=== PATIENT | male | born 1990 | race African-American/Black ===

== ENCOUNTER 2018-10-19 12:17 | Emergency (ER) | payer OTHER ==
[2018-10-19 12:49] VITALS: BP 136/75
[2018-10-19] MEDS ORDERED: Ondansetron ODT TAB* 4 MG PO ONE (13:22)
[2018-10-19] MEDS ORDERED: hydrOXYzine HCL TAB* 25 MG PO ONE (13:22)
--- NOTE | 2018-10-19 13:31 | UC ---
UC General HPI - HPI Summary HPI Summary: 28-YEAR-OLD MALE comes in with a chief complaint of withdrawal from opiates. 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 He stopped 4 days ago. He's feeling shaky jittery he's had abdominal cramping does not feel well. No fevers no chest pain. He was living in [place] that he moved here to try to get away from the drugs. He is interested in outpatient opiate withdrawal treatment. - History of Current Complaint Chief Complaint: UCGeneralIllness Stated Complaint: PERSONAL/ANXIETY Time Seen by Provider: 10/19/18 12:55 Pain Intensity: 10 - Allergy/Home Medications Allergies/Adverse Reactions: Allergies Allergy/AdvReac Type Severity Reaction Status Date / Time No Known Allergies Allergy Verified 10/19/18 12:48 PMH/Surg Hx/FS Hx/Imm Hx Previously Healthy: Yes - Surgical History Surgical History: None - Family History Known Family History: Positive: Non-Contributory - Social History Alcohol Use: Occasionally Substance Use Type: Heroin, Synthetic Drugs Substance Use Comment - Amount & Last Used: Sunday evening Smoking Status (MU): Light Every Day Tobacco Smoker Type: Cigarettes Amount Used/How Often: 04/14 ppd Length of Time of Smoking/Using Tobacco: 4 yrs Review of Systems All Other Systems Reviewed And Are Negative: Yes Constitutional: Positive: Other - SEE HPI Skin: Positive: Negative Eyes: Positive: Negative ENT: Positive: Negative Respiratory: Positive: Negative Cardiovascular: Positive: Negative Gastrointestinal: Positive: Abdominal Pain, Nausea Motor: Positive: Negative Neurovascular: Positive: Negative Musculoskeletal: Positive: Negative Neurological: Positive: Negative Psychological: Positive: Anxious Is Patient Immunocompromised?: No Physical Exam Triage Information Reviewed: Yes Appearance: No Pain Distress, Well-Nourished, Ill-Appearing - MILD Vital Signs: Initial Vital Signs Temp 98.4 F 10/19/18 12:34 Pulse 125 10/19/18 12:34 Resp 18 10/19/18 12:34 BP 136/75 10/19/18 12:34 Pulse Ox 99 10/19/18 12:34 Vital Signs Reviewed: Yes Eye Exam: Normal Eyes: Positive: Conjunctiva Clear, Other: - PERRLA/EOMI, PUPILS 3MM Neck: Positive: Supple Respiratory: Positive: Lungs clear, Normal breath sounds, No respiratory distress Cardiovascular: Positive: Tachycardia Musculoskeletal Exam: Normal Musculoskeletal: Positive: Strength Intact, ROM Intact Neurological Exam: Normal Neurological: Positive: Alert, Muscle Tone Normal Psychological Exam: Normal Psychological: Positive: Age Appropriate Behavior Skin Exam: Normal Course/Dx - Course Course Of Treatment: I discussed opiate withdrawal resources to include [facility], [facility], [facility] drug [facility] [place]. As today is Sunday the patient will contact them in 2 days on Sunday. I wrote a prescription for clonidine 0.1 mg patch to be used weekly. Also for hydroxyzine 50 mg by mouth 4 times a day when necessary. And also Reglan 10 mg by mouth every 6 hours when necessary. At the patient know if he was feeling worse if any chest pain he needs to go the emergency department. - Diagnoses Provider Diagnosis: Opiate withdrawal Discharge - Sign-Out/Discharge Documenting (check all that apply): Patient Departure All imaging exams completed and their final reports reviewed: No Studies - Discharge Plan Condition: Stable Disposition: HOME Prescriptions: cloNIDine 0.1 MG PATCH* [Vokqvjaf-Msj-3 0.1 mg Patch*] 0.1 mg .SEE ORDER WEEKLY #4 patch hydrOXYzine HCl [Hydroxyzine HCl] 50 mg PO QID PRN #20 tablet PRN Reason: Withdrawal - Opiate Metoclopramide TAB* [Reglan TAB*] 10 mg PO Q6H PRN #15 tab MDD 40MG PRN Reason: Nausea Patient Education Materials: Opioid Withdrawal (ED) Referrals: [facility] [Outside] [facility] [Outside] [facility] [Outside] [facility] [Outside] Additional Instructions: FOLLOW UP WITH AN ADDICTION SERVICE LISTED. CONTACT [facility] IN [place] . GO TO THE EMERGENCY DEPARTMENT IF YOUR CONDITION WORSENS OR ANY QUESTIONS OR CONCERNS. - Billing Disposition and Condition Condition: STABLE Disposition: Home
== END 2018-10-19 13:45 | disposition home or self-care (01) ==
LOC: UCCORT 12:17
DX: F11.23 Opioid dependence with withdrawal (principal); R10.9 Unspecified abdominal pain; R11.0 Nausea; F17.210 Nicotine dependence, cigarettes, uncomplicated
CPT/HCPCS: 99202; A9270-GY; G0463